=== PATIENT | female | born 1980 | race African-American/Black ===

== ENCOUNTER 2021-01-02 14:42 | Outpatient (CLI) | payer OTHER | END 2021-01-02 21:05 | disposition home or self-care (01) | LOC: MAMMO 14:42 | PROVIDERS: ATTEND Nurse Practitioner Family | DX: Z12.31 Encounter for screening mammogram for malignant neoplasm of breast (principal) ==

== ENCOUNTER 2021-01-26 14:39 | Outpatient (CLI) | payer OTHER | END 2021-01-26 19:45 | disposition home or self-care (01) | LOC: US 14:39 | PROVIDERS: ATTEND Nurse Practitioner Family | DX: R92.8 Other abnormal and inconclusive findings on diagnostic imaging of breast (principal) ==